=== PATIENT | female | born 1965 | race Caucasian/White ===

== ENCOUNTER 2021-09-12 09:37 | Outpatient (CLI) | payer BC ==
[2021-09-12] MEDS ORDERED: Lidocaine 1% PF 5 ML VIAL ONE (09:53)
[2021-09-12] MEDS ORDERED: Sodium Bicarbonate 2.5 MEQ/5 ML VIAL ONE (09:53)
[2021-09-12] MEDS ORDERED: Acetaminophen 325 MG TAB ONE (11:41)
[2021-09-12 14:22] VITALS: BP 155/80; TEMP 98
== END 2021-09-12 12:00 | disposition home or self-care (01) ==
LOC: CSHRAD 09:37
PROVIDERS: ATTEND Physical Medicine & Rehabilitation
DX: M54.50 Low back pain, unspecified (principal); M41.86 Other forms of scoliosis, lumbar region; M47.816 Spondylosis without myelopathy or radiculopathy, lumbar region; M48.061 Spinal stenosis, lumbar region without neurogenic claudication
CPT/HCPCS: 62304; 72131

== ENCOUNTER 2021-12-05 13:31 | Outpatient (CLI) | payer BC | END 2021-12-05 13:32 | disposition home or self-care (01) | LOC: CSHMAMMO 13:31 | PROVIDERS: ATTEND Family Medicine | DX: Z12.31 Encounter for screening mammogram for malignant neoplasm of breast (principal) | CPT/HCPCS: 77063; 77067 ==

== ENCOUNTER 2022-03-07 18:12 | Emergency (ER) | payer BC ==
[2022-03-07] MEDS ORDERED: Acetaminophen 500 MG TAB ONE (18:41)
[2022-03-07] MEDS ORDERED: Ondansetron PF 4 MG/2 ML Vial ONE ×2 (18:45→19:45)
[2022-03-07 19:12] LABS: #Eosinphils 0.1 10x3/uL (0.0-0.5); #Monocytes 0.5 10x3/uL (0.0-1.1); #Neutrophils 4.6 10x3/uL (1.5-8.4); %Basophils 0.5 % (0.0-2.0); %Lymphocytes 34.1 % (18.0-47.0); %Monocytes 6.1 % (0.0-10.0); %Neutrophils 57.9 % (40.0-75.0); Hemoglobin 13.1 g/dL (12.0-15.5); Mean Corpuscular HGB CONC 34.6 g/dL (32.0-36.0); Mean Corpuscular Hemoglobin 28.3 pg (27.0-33.0); Mean Corpuscular Volume 81.9 fl (81.6-98.3); Mean Platelet Volume 9.7 fl (7.4-10.4); Platelet Count 307 10x3/uL (150-450); RBC Distribution Width 13.3 % (11.5-14.5); Red Blood Cell (RBC) Count 4.63 10x6/uL (3.90-5.03)
[2022-03-07 19:20] LABS: ALT (SGPT) 77 U/L (8-55); AST (SGOT) 62 U/L (5-34); Albumin 4.6 g/dL (3.5-5.0); Alkaline Phosphatase 106 U/L (40-110); Anion Gap 16 mmol/L (10-20); BUN (Urea Nitrogen) 10 mg/dL (9.8-20.1); Bilirubin, Total 0.4 mg/dL (0.2-1.2); CK (CPK) 79 U/L (29-168); Calc. Creatinine Clearance 0 mL/min (70-130); Calcium 9.8 mg/dL (7.8-10.44); Carbon Dioxide 23 mmol/L (22-29); Chloride 106 mmol/L (98-107); Estimated GFR 91; Globulin 3.1 g/dL (2.4-3.5); Glucose 113 mg/dL (70-105); Protein, Total 7.7 g/dL (6.0-8.3); Sodium 141 mmol/L (136-145)
[2022-03-07 19:24] LABS: INR-International Normal Ratio 0.9; PTT 27.1 sec (22.0-33.0); Prothrombin Time 10.2 sec (9.5-12.1)
[2022-03-07] MEDS ORDERED: Morphine 4 MG/ML VIAL ONE (20:01)
[2022-03-07] MEDS ORDERED: Promethazine HCl 25 MG/ML VIAL ONE (21:34)
== END 2022-03-07 23:32 | disposition home or self-care (01) ==
LOC: CSHERS 18:12
DX: S91.052A Open bite, left ankle, initial encounter (principal); T63.091A Toxic effect of venom of other snake, accidental (unintentional), initial encounter; K21.9 Gastro-esophageal reflux disease without esophagitis
CPT/HCPCS: 80053; 82550; 85025; 85384; 85610; 85730; 86850; 86900; 86901; 93005; 96374; 96375; 96376; J2270; J2405; J2550

== ENCOUNTER 2022-03-09 17:38 | Emergency (ER) | payer BC ==
[2022-03-09] MEDS ORDERED: HYDROcodone/Acetaminophen 5/325 mg Tablet ONE (18:40)
[2022-03-09 20:42] LABS: #Eosinphils 0.1 10x3/uL (0.0-0.5); #Monocytes 0.6 10x3/uL (0.0-1.1); #Neutrophils 3.9 10x3/uL (1.5-8.4); %Basophils 0.4 % (0.0-2.0); %Eosinophils 1.4 % (0.0-6.0); %Lymphocytes 40.9 % (18.0-47.0); %Monocytes 7.3 % (0.0-10.0); %Neutrophils 49.7 % (40.0-75.0); Hemoglobin 12.5 g/dL (12.0-15.5); Mean Corpuscular HGB CONC 33.4 g/dL (32.0-36.0); Mean Corpuscular Volume 83.9 fl (81.6-98.3); Mean Platelet Volume 9.7 fl (7.4-10.4); Platelet Count 308 10x3/uL (150-450); RBC Distribution Width 13.2 % (11.5-14.5); Red Blood Cell (RBC) Count 4.46 10x6/uL (3.90-5.03); White Blood Cell (WBC) Count 7.8 10x3/uL (3.5-10.5)
[2022-03-09 20:45] LABS: PTT 25.8 sec (22.0-33.0)
[2022-03-09 20:49] LABS: ALT (SGPT) 56 U/L (8-55); AST (SGOT) 34 U/L (5-34); Albumin 4.3 g/dL (3.5-5.0); Alkaline Phosphatase 94 U/L (40-110); Anion Gap 13 mmol/L (10-20); BUN (Urea Nitrogen) 10 mg/dL (9.8-20.1); Bilirubin, Total 0.3 mg/dL (0.2-1.2); CK (CPK) 76 U/L (29-168); Calc. Creatinine Clearance 0 mL/min (70-130); Calcium 9.4 mg/dL (7.8-10.44); Carbon Dioxide 25 mmol/L (22-29); Chloride 103 mmol/L (98-107); Estimated GFR 96; Glucose 120 mg/dL (70-105); Potassium 4.1 mmol/L (3.5-5.1); Protein, Total 7.3 g/dL (6.0-8.3); Sodium 137 mmol/L (136-145)
== END 2022-03-09 21:47 | disposition home or self-care (01) ==
LOC: CSHERS 17:38
DX: L03.116 Cellulitis of left lower limb (principal); T63.001A Toxic effect of unspecified snake venom, accidental (unintentional), initial encounter; K21.9 Gastro-esophageal reflux disease without esophagitis
CPT/HCPCS: 80053; 82550; 85025; 85384; 85730

== ENCOUNTER 2022-12-15 09:17 | Outpatient (CLI) | payer BC | END 2022-12-15 09:18 | disposition home or self-care (01) | LOC: CSHMAMMO 09:17 | PROVIDERS: ATTEND Family Medicine | DX: Z12.31 Encounter for screening mammogram for malignant neoplasm of breast (principal) | CPT/HCPCS: 77063; 77067 ==

== ENCOUNTER 2023-11-28 12:48 | Outpatient (CLI) | payer BC, SELFPAY | END 2023-11-28 12:49 | disposition home or self-care (01) | LOC: CSHCT 12:48 | PROVIDERS: ATTEND Orthopaedic Surgery | DX: Z01.818 Encounter for other preprocedural examination (principal); M17.32 Unilateral post-traumatic osteoarthritis, left knee ==

== ENCOUNTER 2024-02-13 11:22 | Outpatient (CLI) | payer BC | END 2024-02-13 11:23 | disposition home or self-care (01) | LOC: CSHMAMMO 11:22 | PROVIDERS: ATTEND Family Medicine | DX: Z12.31 Encounter for screening mammogram for malignant neoplasm of breast (principal) | CPT/HCPCS: 77063; 77067 ==